=== PATIENT | female | born 1965 | race Caucasian/White ===

== ENCOUNTER 2018-11-12 10:29 | Outpatient (CLI) | payer OTHER ==
--- NOTE | 2018-11-12 13:57 | CT ---
CT CHEST WITH CONTRAST: CT ABDOMEN WITH CONTRAST: CT PELVIS WITH CONTRAST: HISTORY: Abnormal weight loss. Nicotine dependence. FINDINGS: No suspicious pulmonary nodule. No axillary or mediastinal adenopathy. The aortic size is normal. No pericardial effusion. There is a small cyst in hepatic segment 1. No abnormal enhancing liver mass. With the left adrenal gland is a small hypodensity, measuring 1 cm, not definitively an adenoma. The right adrenal gland is unremarkable. Xkj-mbhqg-fo-characterize right renal hypodensities are present. The aortoiliac contour in the abdomen is normal. There are no dilated loops of large or small bowel. No retroperitoneal adenopathy. The pancreas is unremarkable. The spleen is unremarkable. Normal proximal small bowel rotation. No acute osseous abnormality. The clavicles are unremarkable, as well as both shoulder girdles. The sternum and manubrium are intact. No displaced rib fracture. IMPRESSION: 1. No evidence for primary carcinoma of the chest, abdomen, or pelvis. 2. Simple cyst, hepatic segment 1. 3. Subcentimeter hypodensity in the left adrenal gland. This is not definitive for adenoma, and a f ollow-up adrenal protocol CT or MRI is recommended. This is very unlikely to be the cause of the pat ient's weight loss. POS: [facility]
== END 2018-11-12 10:30 | disposition home or self-care (01) ==
LOC: BICCT 10:29
PROVIDERS: ATTEND Internal Medicine Infectious Disease
DX: F17.210 Nicotine dependence, cigarettes, uncomplicated (principal); R63.4 Abnormal weight loss; K76.89 Other specified diseases of liver; E27.8 Other specified disorders of adrenal gland
CPT/HCPCS: 71260; 74177

== ENCOUNTER 2018-12-13 17:38 | Emergency (ER) | payer OTHER ==
[2018-12-13 18:57] LABS: Bilirubin Negative (Negative); Blood, Urine Trace (Negative); Clarity CLOUDY (Clear); Glucose, Urine (Dipstick) Negative (Negative); Leukocyte Negative (Negative); Nitrite Negative (Negative); Protein, Urine (Dipstick) Negative (Neg-Trace); Specific Gravity, Urine 1.019 (1.002-1.036); Urobilinogen 0.2 mg/dL (0.2-1.0); pH, Urine 5.5 (5.0-9.0)
[2018-12-13 18:58] LABS: #Basophils 0.1 thou/uL (0.0-0.2); #Eosinphils 0.1 thou/uL (0.0-0.7); #Lymphocytes 3.6 thou/uL (1.20-3.40); #Monocytes 0.5 thou/uL (0.11-0.59); #Neutrophils 3.6 thou/uL (1.40-6.50); %Basophils 1.7 % (0.0-1.0); %Eosinophils 1.7 % (0.0-10.0); %Lymphocytes 45.1 % (21.0-51.0); %Monocytes 6.1 % (0.0-10.0); %Neutrophils 45.5 % (42.0-75.0); Hemoglobin 15.9 g/dL (12.0-16.0); Mean Corpuscular HGB CONC 34.9 g/dL (32.0-36.0); Mean Corpuscular Hemoglobin 36.1 pg (27.0-31.0); Mean Platelet Volume 9.3 fL (7.4-10.4); Platelet Count 160 thou/uL (130-400); RBC Distribution Width 11.4 % (11.5-14.5); Red Blood Cell (RBC) Count 4.41 mill/uL (4.20-5.40)
[2018-12-13 18:59] LABS: Bacteria/HPF None Seen HPF (None Seen); Hyaline Casts/LPF 0-3 HYALINE CAST LPF (0-3 Hyaline); Squamous Epithelial None Seen HPF (0-3); WBC/HPF 0-3 HPF (0-3)
[2018-12-13 19:37] LABS: ALT (SGPT) 10 U/L (8-55); AST (SGOT) 14 U/L (5-34); Albumin 4.7 g/dL (3.5-5.0); Alkaline Phosphatase 83 U/L (40-150); Anion Gap 16 mmol/L (10-20); BUN (Urea Nitrogen) 23 mg/dL (9.8-20.1); Bilirubin, Total 0.7 mg/dL (0.2-1.2); Calc. Creatinine Clearance 0 mL/min (70-130); Calcium 9.9 mg/dL (7.8-10.44); Carbon Dioxide 24 mmol/L (22-29); Chloride 105 mmol/L (98-107); Estimated GFR-MDRD 83; Globulin 2.4 g/dL (2.4-3.5); Glucose 83 mg/dL (70-105); Protein, Total 7.1 g/dL (6.0-8.3); Sodium 141 mmol/L (136-145)
--- NOTE | 2018-12-13 21:01 | ULT ---
RIGHT UPPER QUADRANT ULTRASOUND: 12/13/2018 HISTORY: Right upper quadrant abdominal pain. Nausea. Vomiting. Diarrhea. Weight loss. COMPARISON: CT noncontrast abdomen on 12/10/2018. CT contrast abdomen on 11/12/2018. FINDINGS: There is a circumscribed, anechoic, cystic structure seen in the lateral segment of the left hepatic lobe, measuring 1.2 cm, demonstrating characteristics most compatible with a hepatic cyst. This was seen on prior CT exams. The liver otherwise demonstrates a normal sonographic appearance. The visualized portions of the IVC, the visualized portions of the pancreas, and the right kidney dem onstrate a normal sonographic appearance. The right kidney measures 9.4 cm in length. There is a prominent fold within the gallbladder. No gallbladder calculi are seen, and there is no g allbladder wall thickening or pericholecystic fluid identified. The common duct measures 0.2 cm in d iameter, which is within normal limits. IMPRESSION: 1. No gallbladder calculi are seen, and the common duct is normal in caliber. 2. Left hepatic lobe cyst. POS: [facility]
[2018-12-13 21:54] LABS: Hemoglobin 15.7 g/dL (12.0-16.0); Mean Corpuscular HGB CONC 33.7 g/dL (32.0-36.0); Mean Platelet Volume 10.3 fL (7.4-10.4); Platelet Count 166 thou/uL (130-400); RBC Distribution Width 11.6 % (11.5-14.5); Red Blood Cell (RBC) Count 4.49 mill/uL (4.20-5.40); White Blood Cell (WBC) Count 7.8 thou/uL (4.8-10.8)
[2018-12-13 22:05] LABS: Eosinophils 1 % (0-10); Lymphocytes 39 % (21-51); MDiff Complete? YES; Monocytes 6 % (0-10); Neutrophil 48 % (42-75); Platelet Morphology Comment Appears Adequate; Reactive Lymphocytes 6 % (0-10)
[2018-12-13 22:17] LABS: Thyroid Stimulating Hormone 0.7075 uIU/mL (0.35-4.94)
[2018-12-14 00:31] LABS: HIV (1/2) Antibody/Antigen Non-Reactive (NonReactive); HIV 1/2 INDEX 0.08 S/CO (<1.00)
== END 2018-12-13 22:05 | disposition home or self-care (01) ==
LOC: ERS 17:38
DX: R10.11 Right upper quadrant pain (principal); R10.31 Right lower quadrant pain; G43.909 Migraine, unspecified, not intractable, without status migrainosus; F17.200 Nicotine dependence, unspecified, uncomplicated; Z79.899 Other long term (current) drug therapy
CPT/HCPCS: 76705; 80053; 81003; 81015; 83690; 84443; 85025; 85060; 87389

== ENCOUNTER 2019-07-06 11:21 | Day surgery (SDC) | payer OTHER ==
[2019-07-05 14:59] VITALS: BMI 22.4
[2019-07-06] MEDS ORDERED: Ondansetron PF 4 MG/2 ML Vial ONE (14:19)
--- NOTE | 2019-07-06 20:45 | OP ---
DATE OF PROCEDURE: 07/06/2019 PROCEDURE PERFORMED: Esophagogastroduodenoscopy with biopsy. PREMEDICATION: Given by Anesthesiology Department. PREPROCEDURE DIAGNOSIS: Recurrent nausea and vomiting. POSTPROCEDURE DIAGNOSES: 1. Nonerosive esophagitis, likely from emesis. 2. 4-cm hiatal hernia. 3. Erosive antritis and bulbar duodenitis. DESCRIPTION OF PROCEDURE: Written consents were obtained prior to procedure. After adequate sedation, forward-viewing endoscope was advanced down the stomach under direct vision to the second portion of duodenum. The duodenum appeared normal. There was diffuse erythema noted in the bulb and post-bulbar section. The pylorus was patent. Scattered erosions with bolusing. Antral erythema was noted. Biopsies obtained for Helicobacter pylori. The body, fundus, and cardia all appeared normal. The 4-cm hiatal hernia was seen. The gastric fold narrowing appears 36 cm. The Z-line appears at approximately 32 cm. There is nonerosive esophagitis noted. No other mucosal abnormality was seen. The patient tolerated the procedure well. ASSESSMENT: 1. Erosive antritis with duodenitis. 2. Hiatal hernia. 3. Reactive esophagitis, likely from emesis. RECOMMENDATIONS: 1. Await biopsy results. 2. Start on pantoprazole 40 mg p.o. q.a.m. Job ID: [id number]
--- NOTE | 2019-07-06 21:02 | OP ---
DATE OF PROCEDURE: 07/06/2019 PROCEDURE PERFORMED: Colonoscopy for fecal microbiota transplant. DESCRIPTION OF PROCEDURE: Written consents were obtained prior to procedure. After adequate sedation, rectal exam performed, was normal. The endoscope was advanced to the cecum. The quality of the bowel prep was adequate for visualization. 250 mL of FMT solution was then used to irrigate throughout the colon, with the majority in the right colon. This exam was not intended for mucosal inspection; however, no gross lesion was seen on withdrawal. The patient tolerated the procedure well. ASSESSMENT: Status post fecal microbiota transplant (FMT). PLAN: Follow up in office in 1 month. Job ID: [id number]
== END 2019-07-06 16:05 | disposition home or self-care (01) ==
LOC: SDC 11:21
PROVIDERS: ATTEND Internal Medicine
PROC: 0DB78ZX Excision of Stomach, Pylorus, Via Natural or Artificial Opening Endoscopic, Diagnostic (ICD-10-PCS; principal; 2019-07-06)
PROC: 3E0H8GC Introduction of Other Therapeutic Substance into Lower GI, Via Natural or Artificial Opening Endoscopic (ICD-10-PCS; principal; 2019-07-06)
DX: A04.72 Enterocolitis due to Clostridium difficile, not specified as recurrent (principal); K31.89 Other diseases of stomach and duodenum; K25.9 Gastric ulcer, unspecified as acute or chronic, without hemorrhage or perforation; K21.0 Gastro-esophageal reflux disease with esophagitis; K29.80 Duodenitis without bleeding; K44.9 Diaphragmatic hernia without obstruction or gangrene; M19.90 Unspecified osteoarthritis, unspecified site; Z86.010 Personal history of colon polyps; Z87.891 Personal history of nicotine dependence; Z79.2 Long term (current) use of antibiotics; Z79.899 Other long term (current) drug therapy; Z88.0 Allergy status to penicillin; Z88.1 Allergy status to other antibiotic agents; Z88.8 Allergy status to other drugs, medicaments and biological substances
CPT/HCPCS: 88305; 88312; J2405

== ENCOUNTER 2019-07-23 08:52 | Outpatient (CLI) | payer OTHER ==
[2019-07-23] MEDS ORDERED: Iopamidol 370 76% 100 ML VIAL ONE (09:00)
--- NOTE | 2019-07-23 13:23 | CT ---
CT ABDOMEN AND PELVIS: Date: 07/23/19 COMPARISON: 11/12/18. HISTORY: Bilateral lower abdominal pain, chronic abdominal pain, periumbilical pain. TECHNIQUE: Axial CT imaging obtained at 5 mm intervals from the lung bases through the pubic symphysis with intr avenous and oral contrast. Coronal reformatted imaging obtained. FINDINGS: Imaged lung bases unremarkable. No free intraperitoneal air or fluid. Small cyst incidentally noted within the left lobe of the liver on image 11. Gallbladder demonstrates a grossly unremarkable CT appearance. The spleen, pancreas, right adrenal gland, and kidneys are unremarkable. There is a small nodule with in the left adrenal gland, which is too small to characterize. This nodule measures approximately 7 m m and is stable when compared to the 11/12/18 CT examination. The colon is underdistended in the region of the descending colon and sigmoid colon. There is no evid ence for bowel obstruction. The appendix is not visualized on this examination, consistent with the patient's history of appendec samreen. The uterus is surgically absent. There is nonspecific wall thickening of multiple loops of small bowel within the central abdomen and mid right abdomen with no associated mesenteric fat stranding or mesenteric fluid. No lymphadenopathy is evident within the abdomen/pelvis. Review of the osseous structures demonstrates no worrisome lytic or blastic bone lesions. IMPRESSION: Multiple nonspecific thick walled loops of small bowel within the central abdomen, most prominent on the right. This suggests a nonspecific enteritis. GI consultation advised. POS: [facility]
== END 2019-07-23 08:53 | disposition home or self-care (01) ==
LOC: SCSCT 08:52
PROVIDERS: ATTEND Internal Medicine
DX: A04.72 Enterocolitis due to Clostridium difficile, not specified as recurrent (principal); K63.89 Other specified diseases of intestine
CPT/HCPCS: 74177; Q9967

== ENCOUNTER 2020-01-20 09:13 | Outpatient (CLI) | payer BC ==
--- NOTE | 2020-01-20 10:17 | CT ---
CT ABDOMEN AND PELVIS WITH IV CONTRAST 01/20/2020 CLINICAL INFORMATION: Lower abdominal pain. Bloating and vomiting. History of exploratory laparotomy as well as appendectom y and hysterectomy. COMPARISON: 07/23/2019. Technique: Multiple contiguous axial CT images are obtained through the abdomen and pelvis with IV contrast. Cor onal reformatted images are provided. FINDINGS: Lower Chest: within normal limits. Vessels: Minimal atherosclerotic plaque and vascular calcifications. Abdomen: Portal vein:Patent Gallbladder: Within normal limits for CT imaging. Liver: Stable small cyst lateral segment left hepatic lobe. Spleen: within normal limits. Pancreas: within normal limits. Adrenals: Stable left adrenal nodule shown to represent an adrenal adenoma on prior noncontrasted CT scan of 12/10/2018. Right adrenal gland has a normal CT appearance. Kidneys: within normal limits. Bowel: Normal caliber. Appendix: Not visualized. Patient reports history of prior appendectomy. Peritoneum: No ascites or free air; no fluid collection. Mesentery and Retroperitoneum: No enlarged mesenteric or retroperitoneal lymph nodes. Abdominal Wall: Small fat-containing umbilical hernia is stable. Pelvis: Reproductive Organs: Evidence of hysterectomy. Pelvis within normal limits. Bladder: within normal limits. Bones: No suspicious lytic or sclerotic osseous lesions are identified. IMPRESSION: 1. No acute findings in the abdomen or pelvis. 2. Stable left adrenal nodule which had attenuation coefficient on study in 2019 suggestive of an adr enal adenoma. 3. Stable left hepatic lobe cyst. 4. Hysterectomy.
[2020-01-20] MEDS ORDERED: Iopamidol 370 76% 100 ML VIAL ONE (13:33)
== END 2020-01-20 09:14 | disposition home or self-care (01) ==
LOC: CT 09:13
PROVIDERS: ATTEND Internal Medicine
DX: R10.30 Lower abdominal pain, unspecified (principal); K76.89 Other specified diseases of liver; E27.8 Other specified disorders of adrenal gland; Z90.710 Acquired absence of both cervix and uterus
CPT/HCPCS: 74177; Q9967

== ENCOUNTER 2020-01-28 05:57 | Day surgery (SDC) | payer BC ==
[2020-01-27 10:40] VITALS: BMI 24.4
[2020-01-28] MEDS ORDERED: Ondansetron PF 4 MG/2 ML Vial ONE (07:24)
[2020-01-28] MEDS ORDERED: Famotidine/PF 20 mg/2ml Vial ONE (07:24)
[2020-01-28] MEDS ORDERED: Midazolam HCl 2 mg/2 ml Vial ONE ×2 (07:25→07:53)
--- NOTE | 2020-01-28 09:25 | OP ---
DATE OF PROCEDURE: 01/28/2020 PROCEDURE PERFORMED: Colonoscopy with biopsy. INDICATIONS FOR PROCEDURE: Generalized abdominal pain, diarrhea, and change in bowel habits. DESCRIPTION OF PROCEDURE: After the risks and benefits of the procedure were explained to the patient, including risks of bleeding, infection, perforation, reactions to anesthesia, aspiration, and/or pain, informed consent was obtained. The patient was then taken to the endoscopy suite where she was placed in the left lateral decubitus position followed by introduction of deep anesthesia via propofol and anesthesia support. Once adequate sedation was achieved, a digital rectal examination was performed followed by introduction of the standard colonoscope which was then advanced to the terminal ileum with some difficulty in the sigmoid colon due to significant angulation and tortuosity of the colon. However, terminal ileal intubation was able to be achieved without any special maneuvers. The quality of the prep was excellent. The patient tolerated the procedure well with no immediate perioperative complications. Upon conclusion of the procedure, all equipment was removed from the patient and she was transferred to Day Stay in satisfactory condition. FINDINGS: Digital rectal exam: Normal findings were seen on external examination. Colon findings: Normal-appearing mucosa was seen within the terminal ileum up to 10 to 15 cm past the ileocecal valve. Normal-appearing mucosa was then seen at the ileocecal valve and appendiceal orifice. Normal-appearing mucosa was seen in the cecum, ascending colon, transverse colon, descending colon, sigmoid colon, and rectum. Multiple biopsies were taken throughout the colon from the ascending, transverse, descending, and rectum for evaluation of possible microscopic colitis. A small amount of trauma to the sigmoid colon was seen on withdrawal of the colonoscope, but no evidence of perforation. Hypertrophied anal papillae and no hemorrhoids were seen on rectal retroflexion. IMPRESSION: 1. Hypertrophied anal papillae seen on rectal retroflexion. 2. Strict angulation of the sigmoid colon. 3. Otherwise normal colonoscopy. RECOMMENDATIONS: 1. We will follow up on the biopsy results with repeat colonoscopy interval depending on the pathology report. 2. Continue current pain medications as an outpatient. 3. Given strict angulation of the sigmoid colon, pelvic floor dysfunction is possible. I would consider referring the patient for pelvic floor therapy if the biopsies are negative. 4. Continue higher fiber diet. 5. Would have the patient follow up in the GI Clinic as an outpatient in 3 to 4 weeks. Job ID: [id number]
[2020-01-28] MEDS ORDERED: PHENYLEPHRINE-NS 100 MCG/ML 10 ML SYRINGE ONE (09:56)
== END 2020-01-28 09:40 | disposition home or self-care (01) ==
LOC: SDC 05:57
PROVIDERS: ATTEND Internal Medicine
PROC: 0DBE8ZX Excision of Large Intestine, Via Natural or Artificial Opening Endoscopic, Diagnostic (ICD-10-PCS; principal; 2020-01-28)
DX: J34.89 Other specified disorders of nose and nasal sinuses (principal); K21.9 Gastro-esophageal reflux disease without esophagitis; J45.909 Unspecified asthma, uncomplicated; Z79.899 Other long term (current) drug therapy; Z88.0 Allergy status to penicillin; Z88.1 Allergy status to other antibiotic agents; Z88.8 Allergy status to other drugs, medicaments and biological substances; Z88.6 Allergy status to analgesic agent; Z87.891 Personal history of nicotine dependence
CPT/HCPCS: 88305; J2250; J2405; S0028

== ENCOUNTER 2020-03-10 13:48 | Observation (INO) | payer BC ==
[~2020-03-10 13:48] MED LIST: Iopamidol 370 76% 100 ML VIAL ONE
[2020-03-10 14:21] LABS: #Basophils 0.1 thou/uL (0.0-0.2); #Eosinphils 0.1 thou/uL (0.0-0.7); #Lymphocytes 2.6 thou/uL (1.20-3.40); #Monocytes 0.5 thou/uL (0.11-0.59); %Basophils 0.7 % (0.0-1.0); %Eosinophils 1.2 % (0.0-10.0); %Lymphocytes 27.9 % (21.0-51.0); %Neutrophils 65.2 % (42.0-75.0); Mean Corpuscular HGB CONC 33.2 g/dL (32.0-36.0); Mean Corpuscular Hemoglobin 33.3 pg (27.0-31.0); Mean Platelet Volume 9.3 fL (7.4-10.4); Platelet Count 229 thou/uL (130-400); RBC Distribution Width 11.8 % (11.5-14.5); Red Blood Cell (RBC) Count 4.51 mill/uL (4.20-5.40); White Blood Cell (WBC) Count 9.1 thou/uL (4.8-10.8)
[2020-03-10] MEDS ORDERED: Ondansetron PF 4 MG/2 ML Vial ONE ×2 (14:41→15:51)
[2020-03-10] MEDS ORDERED: Morphine 4 MG/ML VIAL ONE (14:41)
[2020-03-10 14:42] LABS: ALT (SGPT) 9 U/L (8-55); AST (SGOT) 15 U/L (5-34); Albumin 5.1 g/dL (3.5-5.0); Alkaline Phosphatase 84 U/L (40-110); Anion Gap 17 mmol/L (10-20); BUN (Urea Nitrogen) 17 mg/dL (9.8-20.1); Bilirubin, Total 0.8 mg/dL (0.2-1.2); CK (CPK) 47 U/L (29-168); Calc. Creatinine Clearance 0 mL/min (70-130); Calcium 10.3 mg/dL (7.8-10.44); Carbon Dioxide 22 mmol/L (22-29); Chloride 105 mmol/L (98-107); Estimated GFR-MDRD 72; Globulin 2.9 g/dL (2.4-3.5); Glucose 107 mg/dL (70-105); Lipase 62 U/L (8-78); Magnesium 1.9 mg/dL (1.6-2.6); Potassium 3.6 mmol/L (3.5-5.1); Sodium 140 mmol/L (136-145)
[2020-03-10 16:31] LABS: Bacteria/HPF None Seen HPF (None Seen); Bilirubin Negative (Negative); Blood, Urine 1+ (Negative); Clarity Clear (Clear); Glucose, Urine (Dipstick) Normal (Negative); Leukocyte Negative Leu/uL (Negative); Nitrite Negative (Negative); Protein, Urine (Dipstick) Negative (Neg-Trace); RBC/HPF 0-3 HPF (0-3); Squamous Epithelial 0-3 HPF (0-3); Urobilinogen Normal mg/dL (Less than 2); WBC/HPF 0-3 HPF (0-3)
--- NOTE | 2020-03-10 16:37 | PDOC.FPRHP ---
- History of Present Illness Chief Complaint: abdominal pain History of Present Illness: 54yo F with h/o chronic abd pain, anxiety presenting to the ER with a CC of abdominal pain and nausea x 5 days. She has these sxs chronically and has had an acute flare. She takes zofran daily. She reports pain as a burning sensation with sharp pain with body aches, nausea and hot sweats. The patient had a colonoscopy done last month that was normal. She is followed by Dr. Craven. No fever. Tolerating PO liquids but nausea with solids, has not tried liquids or solids today. Her father recently 2 days ago from [place], leading to increased anxiety lately. ED Course: 8mg zofran, morphine, and 1L NS - Allergies/Adverse Reactions Allergies Allergy/AdvReac Type Severity Reaction Status Date / Time desipramine Allergy SEVERE Verified 03/10/20 20:18 PUPILLARY CONSTRICTION,FORMLCATION,VERTIGO,PALPITATIO dicyclomine [From Bentyl] Allergy Verified 03/10/20 20:18 gatifloxacin [From Tequin] Allergy Verified 03/10/20 20:18 hyoscyamine Allergy Verified 03/10/20 20:18 pregabalin [From Lyrica] Allergy Verified 03/10/20 20:18 promethazine [From Phenergan] Allergy Verified 03/10/20 20:18 Penicillins AdvReac Unknown Nausea Verified 03/10/20 20:18 - Home Medications Medication Instructions Recorded Confirmed Type Ondansetron HCl 1 tab PO BID PRN 07/05/19 03/10/20 History Aspirin/Acetaminophen/Caffeine 2 each PO PRN PRN 03/10/20 03/10/20 History [Excedrin Extra Strength Caplet] Black Cohosh Root [Menopause 20 mg PO DAILY PRN 03/10/20 03/10/20 History Support] Famotidine [Pepcid] 40 mg PO DAILY 03/10/20 03/10/20 History Lactobacillus Acidophilus 1 capsule PO DAILY 03/10/20 03/10/20 History [Probiotic] Melatonin 10 mg PO HS PRN 03/10/20 03/10/20 History SUMAtriptan Succinate [Imitrex] 6 mg SC Q1HR PRN 03/10/20 03/10/20 History Zantac 150 mg PO DAILY 03/10/20 03/10/20 History traMADol HCl [Tramadol HCl] 50 mg PO BID PRN 03/10/20 03/10/20 History - History PMHx: chronic migraines, anxiety, GERD, ovarian cyst, hx of kidney stones PSHx: nasal surgery x 2, right elbow surgery, spine surgery x 4, kidney stone removal, cholecystectomy, hysterectomy, bladder sx FHx: non contributory Social: Former tobacco user 40+py, quit in the past year; denies alcohol or drug use; lives at home with - Review of Systems General: reports: fever/chills, weight/appetite/sleep changes, night sweats Eyes: denies: vision changes ENT: denies: nasal congestion, rhinorrhea Respiratory: denies: cough, congestion, shortness of breath Cardiovascular: denies: chest pain, palpitation Gastrointestinal: reports: abdominal pain. denies: nausea, vomiting, diarrhea, constipation, GI bleeding Genitourinary: denies: dysuria Skin: denies: rashes Musculoskeletal: denies: pain, tenderness Neurological: reports: weakness Psychological: reports: anxiety - Vital signs BP: 162/83, Pulse: 86, Resp: 16, Pain: 5, O2 sat: 98 on (Room Air), Time: 2019 16:11. Weight 61kg BP: 140/95, Pulse: 95, Resp: 18, Temp: 98.8 (Oral), Pain: 10, O2 sat: 100 on ( Room Air), Time: 03/10/2020 13:49 - Physical Exam Constitutional: NAD, awake, alert and oriented, well developed HEENT: normocephalic and atraumatic, EOMI, grossly normal vision, grossly normal hearing, MMM Neck: supple, FROM Chest: no-tender to palpation Heart: RRR, normal S1/S2, no murmurs/rubs/gallops Lungs: CTAB, no respiratory distress, good air movement, no rales/rhonchi, no wheezing Abdomen: soft, non-tender, bowel sounds present, no masses/distention, no hernias Musculoskeletal: normal structure, normal tone Neurological: no focal deficit Skin: no rash/lesions, good turgor, capillary refill <2 seconds Heme/Lymphatic: no unusual bruising or bleeding Psychiatric: other (very anxious and tearful at times per exam) FMR H&P: Results - Labs Result Diagrams: 03/10/20 14:00 03/10/20 14:00 Lab results: WBC 9.1 thou/uL (4.8-10.8) 03/10/20 14:00 Hgb 15.0 g/dL (12.0-16.0) 03/10/20 14:00 Hct 45.2 % (36.0-47.0) 03/10/20 14:00 MCV 100.0 fL (78.0-98.0) H 03/10/20 14:00 Plt Count 229 thou/uL (130-400) 03/10/20 14:00 Neutrophils % 65.2 % (42.0-75.0) 03/10/20 14:00 Sodium 140 mmol/L (136-145) 03/10/20 14:00 Potassium 3.6 mmol/L (3.5-5.1) 03/10/20 14:00 Chloride 105 mmol/L (98-107) 03/10/20 14:00 Carbon Dioxide 22 mmol/L (22-29) 03/10/20 14:00 BUN 17 mg/dL (9.8-20.1) 03/10/20 14:00 Creatinine 0.82 mg/dL (0.6-1.1) 03/10/20 14:00 Glucose 107 mg/dL (70-105) H 03/10/20 14:00 Calcium 10.3 mg/dL (7.8-10.44) 03/10/20 14:00 Total Bilirubin 0.8 mg/dL (0.2-1.2) 03/10/20 14:00 AST 15 U/L (5-34) 03/10/20 14:00 ALT 9 U/L (8-55) 03/10/20 14:00 Alkaline Phosphatase 84 U/L (40-110) 03/10/20 14:00 Creatine Kinase 47 U/L (29-168) 03/10/20 14:00 Serum Total Protein 8.0 g/dL (6.0-8.3) 03/10/20 14:00 Albumin 5.1 g/dL (3.5-5.0) H 03/10/20 14:00 Lipase 62 U/L (8-78) 03/10/20 14:00 Urine Ketones 40 mg/dL (Negative) A 03/10/20 15:24 Urine Blood 1+ (Negative) A 03/10/20 15:24 Urine Nitrite Negative (Negative) 03/10/20 15:24 Ur Leukocyte Esterase Negative Jose Guadalupe/uL (Negative) 03/10/20 15:24 Urine RBC 0-3 HPF (0-3) 03/10/20 15:24 Urine WBC 0-3 HPF (0-3) 03/10/20 15:24 Ur Squamous Epith Cells 0-3 HPF (0-3) 03/10/20 15:24 Urine Bacteria None Seen HPF (None Seen) 03/10/20 15:24 FMR H&P: A/P - Problem List (1) Intractable nausea and vomiting Status: Acute Code(s): R11.2 - NAUSEA WITH VOMITING, UNSPECIFIED (2) Migraine Status: Acute Code(s): G43.909 - MIGRAINE, UNSP, NOT INTRACTABLE, WITHOUT STATUS MIGRAINOSUS - Plan 54yo F with h/o chronic abd pain, anxiety presents for nausea and abd pain #Nausea and abd pain - chronic with acute flare over past 5 days - reports nausea with inability to keep solids down, can tolerate liquids however has not had a PO challenge today - Hydroxyzine, zofran, and benadryl scheduled. Allergies to multiple over medications. - euvolemic on exam with MM, no indication for IVF - labs unremarkable - states abd pain, however benign abd exam - Known to Dr. Craven, recent colonoscopy WNL. Contacted by ERMD. #Anxiety - moderate - consider SSRI - hydroxzyine #GERD - cont home pepcid #Migraines - no acute sxs Diet: Regular, adv as tolerated VTE: SCDs IVF: SL PCP: CC Disposition/LOS: Admit to medical obs for nausea. Anticipate LOS <48hrs. FMR H&P: Upper Level - Plan Date/Time: 03/10/20 1637 IRosmery MD, have evaluated this patient and agree with findings/plan as outlined by pr internship resident. Pertinent changes/additions are listed here. 54 yo F with past medical history of chronic pain presents for nausea. She reports she cant keep anything down for past 5 days. Says she takes her Zofran 8mg home med qam and sometimes needs it at night as well. Has chronic diarrhea. No bloody vomit or diarrhea. Her father 2 days ago due to MD. Notes she feels weak. She is extremely anxious on exam and is terrified to come into the hospital due to the virus. not present. Given 1L NS, Zofran x2, morphine in ED. VS 162/83, 16, 98.8, 86, 98% on RA, pain 5/10 PE: General: NAD HEENT: NC/AT, moist MM Cardio: RRR, no murmurs, cap refill <2 secs Resp: CTAB, no distress Abd: soft, NT to deep pressure, BS present, no rebound MSK: no edema in LE Psych: Axox3 A&P: Nausea s/p zofran, 1L NS, and morphine -In setting of acute on chronic abdominal pain. -Reports vomiting though none noted in ED, has not had PO challenge yet. Exam benign. -Zofran prn and home Pepcid. Patient has multiple allergies to many other medications -Sees Dr. Craven outpatient. ED doc reportedly discussed case with him. -CT ab read pending. No electrolyte abnormalities. -IVF not needed at this time, patient appears well-hydrated -Likely result of emotional distress due to recent passing of father. Patient has likely underlying anxiety and would benefit from management of this outpatient. Hydroxyzine prn. See pr internship note for chronic medical problems. Dispo: admit to med,obs; LOS < 48hrs VTE: SCDs Diet: Regular, as tolerated with PO challenge PCP: CC Code: DNR Case discussed with Dr. Rust Addendum - Attending - Attending Attestation Date/Time: 03/11/202008 I personally evaluated the patient and discussed the management with Dr. Palomino and team on 03/10. I agree with the History, Examination, Assessment and Plan documented above with any addition or exceptions noted below. Unclear etiology of pain and vomiting. Appears to be "cyclical" with flares. She looks relatively inconsolable with a vomit bag in bed, somewhat similar in appearance to [facility] patients. I do not feel she has a surgical cause - obstruction , PUD, etc. No evidence for pyelo, pancreatitis, GBD. Treat symptomatically, hydrate, hopeful dc tomorrow.
[2020-03-10] MEDS ORDERED: Ondansetron PF 4 MG/2 ML Vial IVP PRN (17:02)
[2020-03-10] MEDS ORDERED: diphenhydrAMINE 25 MG CAP PO PRN (17:06)
[2020-03-10] MEDS ORDERED: traMADol HCl 50 MG TAB PO PRN (17:09)
[2020-03-10] MEDS ORDERED: Melatonin 3 MG TAB PO PRN (17:09)
--- NOTE | 2020-03-10 17:27 | CT ---
CT ABDOMEN AND PELVIS WITH IV CONTRAST: 03/10/20 HISTORY: Abdominal pain. COMPARISON: 01/20/2020 and 12/10/2018. FINDINGS: The lung bases are clear. 13 mm cyst in the left lobe of the liver and small adenoma in the left adre nal gland is stable. No calcified gallstones are seen. The spleen, pancreas, right adrenal gland and kidneys are normal. No free air, free fluid, or lymphadenopathy seen in the abdomen or pelvis. There is scattered mild colonic diverticulosis. There is prominence of the wall of the transverse colon. There are vascular calcifications without evidence of aneurysmal dilatation of the abdominal aorta. T here are degenerative changes of the spine. IMPRESSION: 1. Mild colonic diverticulosis. 2. Prominence/thickening of the wall of the transverse colon. Further evaluation with colonoscop y would be helpful. 3. Stable liver cyst and left adrenal adenoma. POS: [facility]
[2020-03-10] MEDS ORDERED: hydrOXYzine 25 MG TAB PO SCH (18:00)
[2020-03-10] MEDS ORDERED: Ondansetron ODT 4 MG TAB PO SCH ×2 (18:00→22:00)
[2020-03-10 19:11] VITALS: BMI 25.9
[2020-03-10 20:38] LABS: Amphetamine Not Detected (NotDetected); Barbiturates Screen Not Detected (NotDetected); Benzodiazepine Screen Not Detected (NotDetected); Cocaine Metabolite Screen Not Detected (NotDetected); Medtox Control Line Valid? VALID (VALID); Medtox Reader # READER 4; Methadone Not Detected (NotDetected); Methamphetamine Not Detected (NotDetected); Opiate Screen Detected (NotDetected); Oxycodone Screen Not Detected (NotDetected); Phencyclidine (PCP) Not Detected (NotDetected); THC/Cannabinoid Screen Detected (NotDetected); Tricyclic Screen Not Detected (NotDetected)
[2020-03-10] MEDS: hydrOXYzine 25 MG TAB PO SCH (21:17)
[2020-03-10] MEDS: Famotidine 20 MG TAB PO SCH (21:17)
[2020-03-10] MEDS ORDERED: Ondansetron ODT 4 MG TAB SL SCH (21:45)
[2020-03-10] MEDS ORDERED: diphenhydrAMINE 50 MG/ML VIAL IVP SCH (21:45)
[2020-03-10] MEDS ORDERED: Lorazepam 2 MG/ML VIAL SLOW IVP SCH (22:30)
[2020-03-10] MEDS ORDERED: Ondansetron PF 4 MG/2 ML Vial SLOW IVP SCH (23:59)
[2020-03-11] MEDS: Ondansetron PF 4 MG/2 ML Vial SLOW IVP SCH ×3 (04:36→15:35)
[2020-03-11] MEDS: hydrOXYzine 25 MG TAB PO SCH ×3 (04:39→15:34)
[2020-03-11] MEDS ORDERED: hydrOXYzine 25 MG/ML VIAL IM SCH (06:30)
--- NOTE | 2020-03-11 06:53 | PDOC.FM ---
- Subjective Subjective: Mrs. Morse was sitting up in bed with her breakfast. She is very anxious. She started to dry heave during the middle of our conversation. Says she drank two small sprites overnight. - Objective Vital Signs & Weight: Vital Signs (12 hours) Temp Pulse Resp BP Pulse Ox 03/11/20 04:00 98.1 F 79 18 119/77 97 03/11/20 00:00 97.7 F 73 18 115/69 98 03/10/20 19:33 98.5 F 75 20 135/79 98 Weight Weight 60.192 kg I&O: 03/09/20 03/10/20 03/11/20 06:59 06:59 06:59 Intake Total 230 Output Total 200 Balance 30 Result Diagrams: 03/10/20 14:00 03/10/20 14:00 Phys Exam - Physical Examination anxious HEENT: moist MMs Respiratory: no wheezing, clear to auscultation bilateral Cardiovascular: RRR, no significant murmur Gastrointestinal: soft, non-tender, positive bowel sounds Musculoskeletal: no edema Neurological: non-focal Skin: normal turgor Dx/Plan (1) Intractable nausea and vomiting Code(s): R11.2 - NAUSEA WITH VOMITING, UNSPECIFIED Status: Acute (2) Migraine Code(s): G43.909 - MIGRAINE, UNSP, NOT INTRACTABLE, WITHOUT STATUS MIGRAINOSUS Status: Acute - Plan Plan: 54yo F with h/o chronic abd pain, anxiety presents for nausea and abd pain Nausea, abdominal pain s/p zofran, 1L NS, and morphine in ED -In setting of acute on chronic abdominal pain. -Reports vomiting though none noted in ED, has not had PO challenge yet. Exam benign. -Sees Dr. Craven outpatient. C diff tested. -CT showed transverse thickening- had colonoscopy with multiple biopsies, normal , this year. No electrolyte abnormalities. -IVF not needed at this time, patient appears well-hydrated -Likely result of emotional distress due to recent passing of father. Patient has likely underlying anxiety and would benefit from management of this outpatient. Hydroxyzine prn. Anxiety - would benefit from longterm outpatient. Says she has been put on antipsychotics in the past which made her worse. Also has had benzo before. - hydroxzyine prn GERD - cont home pepcid Migraines - no acute sxs Hx recurrent c diff s/p fecal transplant - c diff ordered per recommendations VTE: SCDs Diet: Regular, as tolerated PCP: CC Code: Full Dispo: pending symptom improvement, is otherwise stable Addendum - Attending - Attending Attestation Date/Time: 03/11/20 1030 I personally evaluated the patient and discussed the management with Dr. Arrington. I agree with the History, Examination, Assessment and Plan documented above with any addition or exceptions noted below. Patient stable. She reports to me that she was able to keep down grits and a few sodas. She feels that her nausea increases due to "panic" and she gets "worked up". Requesting Ativan. She is marijuana positive which can likely contribute to her chronic nausea. If tolerating PO, she should be stable for dc wth continued workup in outpatient setting as set in place by her GI doc.
[2020-03-11] MEDS: Famotidine 20 MG TAB PO SCH (10:05)
[2020-03-11 15:34] VITALS: BP 128/76; TEMP 98.1
--- NOTE | 2020-03-17 14:49 | EKG ---
Test Reason : Blood Pressure : / mmHG Vent. Rate : 084 BPM Atrial Rate : 084 BPM P-R Int : 118 ms QRS Dur : 078 ms QT Int : 364 ms P-R-T Axes : 068 062 035 degrees QTc Int : 430 ms Normal sinus rhythm Normal ECG Confirmed by SHANTELL YAÑEZ ([id number]), assignment desk editor KEL WHATLEY ([id number]) on 03/17/2020 2:48:56 PM Referred By: Confirmed By:SHANTELL YAÑEZ
== END 2020-03-11 15:51 | disposition home or self-care (01) ==
LOC: ERS 13:48 → T4-A 17:54
PROVIDERS: ADMIT Student in an Organized Health Care Education/Training Program; ATTEND Student in an Organized Health Care Education/Training Program
DX: R11.2 Nausea with vomiting, unspecified (principal); G43.909 Migraine, unspecified, not intractable, without status migrainosus; F41.9 Anxiety disorder, unspecified; K21.9 Gastro-esophageal reflux disease without esophagitis; Z79.82 Long term (current) use of aspirin; Z79.899 Other long term (current) drug therapy; Z87.891 Personal history of nicotine dependence; Z88.0 Allergy status to penicillin; Z88.1 Allergy status to other antibiotic agents; Z88.8 Allergy status to other drugs, medicaments and biological substances; Z66 Do not resuscitate
CPT/HCPCS: 74177; 80053; 80306; 81003; 81015; 82550; 83690; 83735; 84484; 85025; 87324; 87449; 93005; 96361; 96372; 96374; 96375; 96376; G0378; J2060; J2270; J2405; J3410; Q0162; Q9967

== ENCOUNTER 2020-03-30 07:54 | Outpatient (CLI) | payer BC ==
--- NOTE | 2020-03-30 08:35 | ULT ---
EXAM: US Gallbladder RUQ CLINICAL HISTORY: Right upper quadrant pain. COMPARISON: 12/13/2018 FINDINGS: Pancreas: The head of the pancreas has a normal echotexture. The remainder the pancreas is obscured by bowel gas Liver:Hepatic parenchyma has a normal echotexture. No hepatic masses or intrahepatic biliary dilatati on. Right hepatic lobe: 11.3 cm Gallbladder: No sonographic evidence of cholelithiasis, gallbladder wall thickening or pericholecysti c fluid. Hernandez's sign:Negative Portal Vein: Patent. Appropriate directional flow Bile ducts: Common bile duct diameter 0.3 cm Right kidney: No hydronephrosis. Right kidney measures 4.5 x 9.6 x 4.8 cm in length. IMPRESSION: 1. No sonographic evidence of cholelithiasis or colitis status 2. Normal caliber common bile duct 3. Normal hepatic parenchymal echotexture. Previously noted left hepatic lobe cyst is not appreciated on the current examination
== END 2020-03-30 07:55 | disposition home or self-care (01) ==
LOC: ULT 07:54
PROVIDERS: ATTEND Specialist
DX: R10.11 Right upper quadrant pain (principal)
CPT/HCPCS: 76705

== ENCOUNTER 2020-04-11 13:51 | Outpatient (CLI) | payer BC, OTHER ==
[2020-04-12 11:21] LABS: SARS-CoV-2 MS2 Positive; SARS-CoV-2 N Gene Negative; SARS-CoV-2 S Gene Negative; SARS-CoV-2 orf1ab Negative
== END 2020-04-11 13:52 | disposition home or self-care (01) ==
LOC: LABBT 13:51
PROVIDERS: ATTEND Specialist
DX: Z01.812 Encounter for preprocedural laboratory examination (principal); Z11.59 Encounter for screening for other viral diseases; R10.9 Unspecified abdominal pain
CPT/HCPCS: 87635; U0003

== ENCOUNTER 2020-04-13 09:57 | Inpatient (IN) | payer BC, OTHER ==
--- NOTE | 2020-04-13 10:04 | HP ---
HISTORY OF PRESENT ILLNESS: Ivana Morse is a 54-year-old female who reports to my office in followup after undergoing ultrasound of her gallbladder. I initially saw her on 03/27/[address] Dank Bray is her primary doctor at [facility]. The patient has had abdominal pain for several months and this is worsening. Her abdominal pain is burning, tearing in nature, mostly involving her lower abdomen, sometimes her epigastrium area. This seems to be worsening. She had similar pain 9 to 10 years ago, underwent laparoscopy converted to laparotomy with some bladder procedures performed. She states after the adhesiolysis, her pain was relieved. 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 She did have problems with C. difficile colitis at one point and was given a fecal transplant. She denies any pain or problems with her thoracic spine, although some of her pain radiates from her lower back. I have had a lengthy discussion with her regarding expectations and usually adhesiolysis does not relieve pain, although she had a good result 8 or 9 years ago for similar-type situation. Given that and her progressive pain and the amount of pain that she is having, plan is for laparoscopic adhesiolysis, laparotomy if necessary. She understands risks and benefits and consents. We will plan this under general anesthesia, TAP block. I have talked to Dr. Bray to began referrals for chronic pain management and evaluation for other etiologies. Her pain may be neurogenic. She may need eventually MRI of thoracic spine. I did initiate referrals to Dr. Avelino Hayes, but he is not in her network and we will have to arrange visitation with another pain physician. The patient has tried Lyrica, gabapentin and other medications without relief. They had undesirable side effects. I have personally spoken to Dr. Craven and to Dr. Bray by telephone today regarding this situation. The patient is teary-eyed in my office and emotional. She, however, is very reasonable. MEDICATIONS: 1. Zofran p.r.n. 2. Imitrex p.r.n. 3. Excedrin p.r.n. 4. Align 4 mg capsule once daily. 5. Melatonin daily. 6. Famotidine 40 mg at bedtime. 7. Tramadol p.r.n. pain. 8. Cortisol supplements. 9. Amberen. PAST MEDICAL HISTORY: Asthma, C. diff colitis treated with fecal transplant, anxiety, gastritis. PAST SURGICAL HISTORY: Neck surgery, ACDF x2, post laminotomy x2, hysterectomy in 1998, appendectomy in 1993, right salpingo-oophorectomy in 1993, fractured left ankle ORIF in 1999, nasal surgery in 1999, urolithiasis surgery in June 2016, spinal surgery in April 2004 and August 2013. FAMILY HISTORY: Father , mother alive, diagnosed with diabetes, hypertension, heart disease, cancer. Siblings alive. SOCIAL HISTORY: Tobacco cessation in 2019, a pack a day prior. Alcohol, none. ALLERGIES: PHENERGAN, PENICILLIN, LYRICA, TYLENOL, HYOSCYAMINE, DICYCLOMINE, PROTONIX, DESIPRAMINE, FLUOXETINE, BUSPIRONE. REVIEW OF SYSTEMS: Ten-point noncontributory. PHYSICAL EXAMINATION: VITAL SIGNS: 131 pounds, 60 inches, 146/86, 103, 100. HEAD, EARS, EYES, NOSE, AND THROAT: Unremarkable. LUNGS: Clear to auscultation. CARDIAC: Regular rate and rhythm. No murmur or gallop. ABDOMEN: Soft, nondistended, non-tympanitic. No hernias. No masses. EXTREMITIES: Unremarkable. LABORATORY DATA: Laboratories on 03/31/2020, glucose 99, BUN 18, creatinine 0.83. Sodium 143, potassium 4.9, chloride 105, carbon dioxide 26, magnesium 2.2. Calcium 9.4. Cholesterol 187, triglycerides 142, bilirubin 0.4. AST, ALT, and alkaline phosphatase are normal 12, 8, and 83 respectively. White count 6.4, hemoglobin 13, hematocrit 38. TSH is normal. ASSESSMENT AND PLAN: Abdominal pain, etiology is uncertain. I have tried to avoid laparoscopy and they understand that I cannot guarantee that adhesiolysis will relieve her pain, but she had good results in the past and plan is for laparoscopic adhesiolysis and procedures indicated. After this procedure, if her pain does not improve, she will need referral for pain management and probably a thoracic MRI to further evaluate these problems. Job ID: [id number]
[2020-04-13] MEDS ORDERED: Midazolam HCl 2 mg/2 ml Vial ONE ×3 (11:13→14:16)
[2020-04-13] MEDS ORDERED: Fentanyl 250 MCG/5 ML VIAL ONE (11:38)
[2020-04-13] MEDS ORDERED: Lidocaine 1% w/Epinephrine 1:100K 20 ML VIAL ONE (11:47)
[2020-04-13] MEDS ORDERED: Bupivacaine 0.25% HCL 30 ML VIAL ONE (11:47)
[2020-04-13] MEDS ORDERED: EPHEDRINE 25 MG/5 ML SYRINGE ONE (13:00)
[2020-04-13] MEDS ORDERED: Rocuronium Bromide 10 MG/ML (10ML VIAL) ONE (13:00)
[2020-04-13] MEDS ORDERED: Lidocaine 1% PF 5 ML VIAL ONE (13:00)
[2020-04-13] MEDS ORDERED: Glycopyrrolate 0.2 MG/ML 5 ML SYRINGE ONE (13:00)
[2020-04-13] MEDS ORDERED: PROPOFOL 200 MG/20 ML VIAL ONE (13:00)
[2020-04-13] MEDS ORDERED: Levofloxacin 500 mg/D5W 100 ml Premix Bag ONE (13:06)
[2020-04-13] MEDS ORDERED: Morphine 2 MG/ML SYRINGE SLOW IVP PRN (13:55)
[2020-04-13] MEDS ORDERED: Ondansetron ODT 4 MG TAB PO PRN ×2 (13:55→15:58)
[2020-04-13] MEDS ORDERED: Ondansetron PF 4 MG/2 ML Vial IVP PRN (13:55)
[2020-04-13] MEDS ORDERED: hydrALAZINE 20 MG/ML VIAL SLOW IVP PRN (13:55)
[2020-04-13] MEDS ORDERED: Ondansetron ODT 8 MG TAB PO PRN (13:59)
[2020-04-13] MEDS ORDERED: Ondansetron ODT 8 MG TAB SL PRN (13:59)
[2020-04-13] MEDS ORDERED: traMADol HCl 50 MG TAB PO PRN ×3 (13:59→14:01)
[2020-04-13] MEDS ORDERED: Lactated Ringer's 1,000 ML IV SCH (14:00)
[2020-04-13] MEDS ORDERED: SUMAtriptan Succinate 6 MG/0.5 ML VIAL SC PRN (14:01)
[2020-04-13] MEDS ORDERED: Aspirin/APAP/Caffeine Tab (Excedrin Migraine) PO PRN (14:01)
[2020-04-13] MEDS ORDERED: Diazepam 5 MG TAB PO PRN (14:01)
[2020-04-13] MEDS ORDERED: ONDANSETRON HCL PO PRN (14:01)
[2020-04-13] MEDS ORDERED: Melatonin 3 MG TAB PO PRN (14:01)
[2020-04-13] MEDS ORDERED: Fentanyl 100 MCG/2 ML VIAL ONE (14:11)
[2020-04-13] MEDS ORDERED: HYDROmorphone 2 MG/ML VIAL SLOW IVP PRN (14:12)
[2020-04-13] MEDS ORDERED: Promethazine HCl 25 MG/ML VIAL SLOW IVP PRN (14:12)
[2020-04-13] MEDS ORDERED: Ketorolac Tromethamine 30 MG/ML VIAL IVP PRN (14:12)
[2020-04-13] MEDS ORDERED: Promethazine HCl 25 MG/ML VIAL IM PRN (14:12)
[2020-04-13] MEDS ORDERED: Ondansetron HCl/PF 4 MG/2 ML Vial IVP PRN (14:12)
[2020-04-13] MEDS: Lactated Ringer's 1,000 ML IV SCH (15:00)
[2020-04-13 15:32] VITALS: BMI 26.3
[2020-04-13] MEDS: Ondansetron PF 4 MG/2 ML Vial SLOW IVP PRN ×2 (18:00→22:10)
--- NOTE | 2020-04-13 19:19 | OP ---
DATE OF PROCEDURE: 04/13/2020 PREOPERATIVE DIAGNOSES: 1. Abdominal pain despite normal upper and lower endoscopy, CAT scans, workup negative for intermittent porphyria. 2. Four prior cervical spine surgeries. 3. Prior good result with adhesiolysis to relieve abdominal pain 10 years ago. POSTOPERATIVE DIAGNOSES: 1. Abdominal pain despite normal upper and lower endoscopy, CAT scans, workup negative for intermittent porphyria. 2. Four prior cervical spine surgeries. 3. Prior good result with adhesiolysis to relieve abdominal pain 10 years ago. 4. Some pelvic adhesions, nonobstructive. PROCEDURE PERFORMED: Laparoscopic enterolysis. ANESTHESIA: General, local with 0.5% Marcaine 30 mL, mixed with 2% Xylocaine 20 mL, with epinephrine. FINDINGS: The patient had some pelvic adhesions to small bowel. These were taken down, but none to the abdominal wall. Significant excess for some fatty adhesions in the left lower quadrant, taken down with LigaSure. DESCRIPTION OF PROCEDURE: The patient was taken to the operating room where under general anesthesia, Mcconnell catheter placed at the beginning of the procedure and removed at the end. Abdomen was prepared with ChloraPrep and draped in routine fashion. The left lateral subcostal incision was made. Pneumoperitoneum to 15 mmHg was obtained with Veress needle, replacing with a 5 port, where the laparoscope inserted. Left lower quadrant incision made and a 5 port placed. Infraumbilical incision made and a 5 port placed. Abdominal cavity inspected. There were some fatty adhesions between the sigmoid colon and the left lower quadrant, taken down with the LigaSure. There were some small bowel adhesions in the pelvis, taken down with sharp scissors and LigaSure, freeing the small bowel. Small bowel was inspected from the ileocecal valve to the ligament of Treitz, noted to be otherwise normal. Proximal small bowel perhaps was slightly thickened, but there was no obstructive process, mechanical. Pneumoperitoneum was reduced. All instruments were removed. All skin incisions were approximated with interrupted subdermal 4-0 Monocryl and [place] glue applied. Because of the patient's persistent nausea, vomiting, and dehydration, she will be admitted postoperatively to evaluate this process. Job ID: [id number]
[2020-04-13] MEDS: Famotidine 20 MG TAB PO SCH (20:33)
[2020-04-13] MEDS: Famotidine/PF 20 mg/2ml Vial SLOW IVP SCH (20:38)
[2020-04-13] MEDS ORDERED: Enoxaparin Sodium 40 MG/0.4 ML SYRINGE SC SCH (21:00)
[2020-04-13] MEDS ORDERED: Famotidine 20 MG TAB PO SCH (21:00)
[2020-04-13] MEDS: Morphine 4 MG/ML VIAL SLOW IVP PRN (22:10)
[2020-04-14] MEDS: Lorazepam 2 MG/ML VIAL SLOW IVP PRN ×2 (00:40→16:17)
[2020-04-14] MEDS: Lactated Ringer's 1,000 ML IV SCH ×5 (01:29→15:48)
[2020-04-14 05:37] LABS: #Lymphocytes 2.1 thou/uL (1.20-3.40); #Monocytes 0.7 thou/uL (0.11-0.59); #Neutrophils 5.3 thou/uL (1.40-6.50); %Basophils 0.6 % (0.0-1.0); %Eosinophils 0.3 % (0.0-10.0); %Lymphocytes 25.7 % (21.0-51.0); %Monocytes 8.9 % (0.0-10.0); %Neutrophils 64.5 % (42.0-75.0); Hemoglobin 11.6 g/dL (12.0-16.0); Mean Corpuscular HGB CONC 32.4 g/dL (32.0-36.0); Mean Corpuscular Hemoglobin 32.7 pg (27.0-31.0); Mean Platelet Volume 8.7 fL (7.4-10.4); Platelet Count 205 thou/uL (130-400); RBC Distribution Width 11.8 % (11.5-14.5); Red Blood Cell (RBC) Count 3.54 mill/uL (4.20-5.40); White Blood Cell (WBC) Count 8.3 thou/uL (4.8-10.8)
[2020-04-14] MEDS: Morphine 4 MG/ML VIAL SLOW IVP PRN ×2 (06:00→10:41)
[2020-04-14] MEDS: Famotidine 20 MG TAB PO SCH (07:23)
[2020-04-14] MEDS: Famotidine/PF 20 mg/2ml Vial SLOW IVP SCH (08:47)
[2020-04-14] MEDS: Ondansetron PF 4 MG/2 ML Vial SLOW IVP PRN (08:47)
[2020-04-14] MEDS ORDERED: Lactinex Tablet PO SCH (09:00)
--- NOTE | 2020-04-14 12:07 | PRG ---
DATE OF SERVICE: 04/14/2020 SUBJECTIVE: Ivana Morse one day after laparoscopy to evaluate abdominal pain without any remarkable findings to suggest etiology for abdominal pain. She has had four cervical spine surgeries elsewhere. She denies any thoracic/lumbar back pain. She has anxiety and tremulous and claustrophobic and will require sedation for MRI scan without contrast, thoracic and cervical spine. I have arranged for anesthesia to provide sedation for her to accomplish that study. I have discussed with Dr. Renny Adair, Neurosurgery and he will see her in consultation. The patient has been dealing with nausea and anxiety for some time. Dr. Craven has performed upper and lower endoscopies without remarkable findings. Laparoscopy did not reveal any obstructive symptoms. At this point, the patient has been managing the nausea with Zofran at home, which she has plenty of supply. She has tramadol at home plenty of supply that Dr. Craven has prescribed. She is out of Valium and that has been helping with her anxiety. The Ativan given her IV last night helped her anxiety tremendously. We will give her prescription of Valium p.r.n. for her anxiety. Pending her MRI scan results, in Dr. Adair's opinion, the patient can be discharged to home later today. The patient does report some problems with voiding. She has never had this problem before. We will check a postvoid residual bladder scan. OBJECTIVE: LUNGS: Clear to auscultation. CARDIAC: Regular rate and rhythm without murmur or gallop. ABDOMEN: Soft. Postoperative tenderness. Surgical wounds, laparoscopic, looked good. VITAL SIGNS: Temperature 98.2 degrees, pulse 78, blood pressure 135/73. LABORATORY DATA: This morning, her white count is 8.3, hemoglobin 11.6 postoperatively. ASSESSMENT AND PLAN: Abdominal pain without etiology despite extensive evaluation, awaits MRI scan of cervical and thoracic spine. She has had four cervical spine surgeries out of town. Dr. Renny Adair consultation. Job ID: [id number]
[2020-04-14] MEDS ORDERED: Midazolam HCl 2 mg/2 ml Vial ONE (13:57)
[2020-04-14] MEDS ORDERED: Diazepam 2 MG TAB PO SCH (15:00)
--- NOTE | 2020-04-14 15:12 | MRI ---
MRI OF CERVICAL SPINE WITHOUT CONTRAST: 04/14/20 HISTORY: Prior C-spine surgery with unexplained abdominal pain. Evaluate for cervical cause of the abdominal p ain. TECHNIQUE: Multiplanar and multisequence MR images were obtained of the cervical spine without contrast. FINDINGS: The patient is status post anterior fusion of C4 through C6. Hardware still remains at C4 and C5. Jese tebral bodies demonstrate normal height without acute fracture or subluxation. Generalized disc desic cation seen of the remaining intervertebral discs. The visualized cord demonstrates normal signal throughout. The craniocervical junction is unremarkabl e. C2-3: Unremarkable. C3-4: Unremarkable. C4-5: Unremarkable. C5-6: This level is fused. No neural foramina or central canal stenosis. No significant posterior bul ge of the level of fusion is seen. C6-7: There is a minimal disc osteophyte complex. No posterior facet arthrosis. Mild bilateral neural foraminal stenosis. Mild central canal stenosis. C7-T1: Unremarkable. IMPRESSION: Postsurgical changes of the cervical spine with minimal residual degenerative change just below the l evel of fusion. POS: RASHAADA
[2020-04-14] MEDS ORDERED: Lidocaine 1% PF 5 ML VIAL ONE (15:44)
[2020-04-14] MEDS ORDERED: PROPOFOL 200 MG/20 ML VIAL ONE (15:44)
[2020-04-14] MEDS ORDERED: EPHEDRINE 25 MG/5 ML SYRINGE ONE (15:44)
--- NOTE | 2020-04-14 16:39 | MRI ---
MRI OF THE THORACIC SPINE WITHOUT CONTRAST: 04/14/20 HISTORY: Abdominal pain that is unexplained. History of abdominal surgery yesterday. TECHNIQUE: Multiplanar and multisequence MRI images were obtained in a thoracic spine without contrast. FINDINGS: Vertebral bodies and intervertebral discs demonstrate normal height and alignment without fracture or subluxation. Mild end plate degenerative changes are seen in the upper thoracic spine. The visualized cord demonstrates normal signal throughout. Atelectasis is see in the lung bases. Ther e is a cyst in the left kidney. The other prevertebral and paraspinal soft tissues are unremarkable. No significant central canal stenosis is seen. No neural foraminal stenosis is seen. No posterior fac et arthrosis. IMPRESSION: No significant thoracic spine abnormality. POS: EAA
[2020-04-14 17:11] VITALS: BP 147/94; TEMP 98.3
[2020-04-14] MEDS ORDERED: Famotidine 20 MG TAB PO SCH (21:00)
[2020-04-14] MEDS ORDERED: Progesterone,Micronized 100 MG CAP PO SCH (21:00)
== END 2020-04-14 17:40 | disposition home or self-care (01) | DRG 337 ==
LOC: SDC 09:57 → SURG A 14:02
PROVIDERS: ADMIT Specialist; ATTEND Specialist
PROC: 0DN84ZZ Release Small Intestine, Percutaneous Endoscopic Approach (ICD-10-PCS; principal; 2020-04-13)
DX: R10.9 Unspecified abdominal pain (principal); N73.6 Female pelvic peritoneal adhesions (postinfective); J45.909 Unspecified asthma, uncomplicated; F41.9 Anxiety disorder, unspecified; Z90.710 Acquired absence of both cervix and uterus; Z88.0 Allergy status to penicillin; Z88.9 Allergy status to unspecified drugs, medicaments and biological substances
CPT/HCPCS: 36415; 72141; 72146; 85025; J1650; J1956; J2001; J2060; J2250; J2270; J2405; J2704; J3010; S0020; S0028

== ENCOUNTER 2020-06-09 10:36 | Outpatient (CLI) | payer BC ==
--- NOTE | 2020-06-09 11:29 | CT ---
CT BRAIN WITHOUT CONTRAST: HISTORY: Migraine headaches. Migraine with aura, not retractable. Slurred speech and drooping of the left side FINDINGS: No evidence of acute infarct, hemorrhage, midline shift or abnormal extra-axial fluid collections is seen. The ventricular size is appropriate and the basilar cisterns are patent. The bony calvarium is intact. The visualized paranasal sinuses and mastoid air cells are well aerated. IMPRESSION: No CT evidence of acute intracranial process.
== END 2020-06-09 10:37 | disposition home or self-care (01) ==
LOC: SCSCT 10:36
PROVIDERS: ATTEND Psychiatry & Neurology Neurology
DX: G43.109 Migraine with aura, not intractable, without status migrainosus (principal)
CPT/HCPCS: 70450